=== PATIENT | female | born 1995 | race Caucasian/White ===

== ENCOUNTER 2018-01-23 08:49 | Outpatient (CLI) | payer OTHER | END 2018-01-23 08:50 | disposition short-term general hospital (02) | LOC: EMS 08:49 | PROVIDERS: ATTEND Surgery | DX: R10.9 Unspecified abdominal pain (principal); R55 Syncope and collapse | CPT/HCPCS: A0425; A0427 ==

== ENCOUNTER 2018-04-13 11:00 | Outpatient (CLI) | payer OTHER | END 2018-04-13 11:01 | disposition critical access hospital (66) | LOC: EMS 11:00 | PROVIDERS: ATTEND Surgery | DX: R11.2 Nausea with vomiting, unspecified (principal); R10.11 Right upper quadrant pain | CPT/HCPCS: A0425; A0427 ==

== ENCOUNTER 2018-04-13 11:16 | Emergency (ER) | payer OTHER ==
[2018-04-13] MEDS ORDERED: ONDANSETRON 4 MG/2 ML VIAL IVP STA (12:14)
[2018-04-13] MEDS ORDERED: SODIUM CHLORIDE 0.9% 1,000 ML IV ONE (12:23)
[2018-04-13] MEDS ORDERED: PANTOPRAZOLE 40 MG VIAL IVP STA (12:35)
[2018-04-13] MEDS ORDERED: KETOROLAC 15 MG/ML VIAL IVP STA (12:35)
[2018-04-13 12:37] LABS: BASOPHILS % (AUTO) 0.5 %; EOSINOPHILS # (AUTO) 0.2 10^3/uL (0.0-0.7); EOSINOPHILS % (AUTO) 1.7 %; HGB - HEMOGLOBIN 12.8 g/dL (12.0-16.0); LYMPHOCYTES # (AUTO) 1.2 10^3/uL (1.5-3.5); LYMPHOCYTES % (AUTO) 13.6 %; MEAN CORPUSCULAR HEMOGLOBIN 31.3 pg (27.0-31.0); MEAN CORPUSCULAR HGB CONC 33.9 g/dL (32.0-36.0); MEAN CORPUSCULAR VOLUME 92.2 fL (81.0-99.0); MEAN PLATELET VOLUME 8.2 fL (7.9-10.8); MONOCYTES # (AUTO) 0.5 10^3/uL (0.0-1.0); MONOCYTES % (AUTO) 5.8 %; NEUTROPHILS # (AUTO) 6.9 10^3/uL (1.5-6.6); NEUTROPHILS % (AUTO) 78.4 %; PLT - PLATELET COUNT 226 10^3/uL (130-450); RED BLOOD COUNT 4.08 10^6/uL (4.20-5.40); RED CELL DISTRIBUTION WIDTH 13.5 % (12.0-15.0); WHITE BLOOD COUNT 8.8 x10^3/uL (4.8-10.8)
--- NOTE | 2018-04-13 12:38 | ED Physician Documentation ---
PD HPI ABD PAIN - Stated complaint Stated Complaint: N/V abd px - Chief complaint Chief Complaint: Abd Pain - History obtained from History obtained from: Patient, Family - History of Present Illness Timing - onset: Today Timing - duration: Days (1) Timing - details: Abrupt onset Pain level max: 8 Pain level now: 8 Quality: Aching, Pain, Other (burning) Location: Epigastric Radiation: Other (non-radiating) Improved by: Vomiting Worsened by: Eating Associated symptoms: Nausea, Vomiting. No: Fever, Hematemesis, Diarrhea, Constipation, Melena, Hematochezia, Dysuria, Hematuria Similar symptoms before: Has not had sx before Recently seen: Not recently seen - Additional information Additional information: Patient is a 22-year-old female who presents with epigastric pain and vomiting after drinking alcohol while camping with friends last night. States she normally does not drink beer. She also uses marijuana every 3 days or so. Denies any possibility of . Is not currently on any medications. Has already had a cholecystectomy. Review of Systems Constitutional: denies: Fever, Chills Ears: denies: Ear pain Nose: denies: Rhinorrhea / runny nose, Congestion Throat: denies: Sore throat Respiratory: denies: Cough GI: denies: Diarrhea, Hematemesis, Bloody / black stool : denies: Dysuria Skin: denies: Rash Musculoskeletal: denies: Neck pain, Back pain Neurologic: denies: Headache PD PAST MEDICAL HISTORY - Past Medical History Past Medical History: No - Past Surgical History Past Surgical History: No - Present Medications Home Medications: Ambulatory Orders Medication Instructions Recorded Confirmed Famotidine [Pepcid] 20 mg PO BID #60 tablet 04/13/18 Ondansetron Odt [Zofran] 4 mg TL Q6H PRN #10 tablet 04/13/18 Sucralfate [Carafate] 1 gm PO ACHS #60 tablet 04/13/18 - Allergies Allergies/Adverse Reactions: Allergies Allergy/AdvReac Type Severity Reaction Status Date / Time No Known Drug Allergies Allergy Verified 04/13/18 11:27 - Social History Does the pt smoke?: Yes Smoking Status: Current every day smoker Does the pt drink ETOH?: Yes Does the pt have substance abuse?: No - Immunizations Immunizations are current?: Yes - POLST Patient has POLST: No PD ED PE NORMAL - Vitals Vital signs reviewed: Yes - General General: Alert and oriented X 3, No acute distress - HEENT HEENT: Moist mucous membranes - Neck Neck: Supple, no meningeal sign - Cardiac Cardiac: RRR, Strong equal pulses - Respiratory Respiratory: No respiratory distress, Clear bilaterally - Abdomen Abdomen: Soft, Other (Tender palpation epigastric without peritoneal signs) - Back Back: No CVA TTP, No spinal TTP - Derm Derm: Warm and dry, No rash - Extremities Extremities: No edema - Neuro Neuro: Alert and oriented X 3 - Psych Psych: Normal mood, Normal affect Results - Vitals Vitals: Vital Signs - 24 hr 04/13/18 04/13/18 04/13/18 11:24 13:00 14:15 Temperature 36.6 C 36.5 C Heart Rate 77 78 70 Respiratory 20 16 18 Rate Blood Pressure 121/71 114/72 111/65 O2 Saturation 99 98 99 Oxygen O2 Source Room air - Labs Labs: Laboratory Tests 04/13/18 04/13/18 04/13/18 12:30 12:31 12:31 WBC 8.8 RBC 4.08 L Hgb 12.8 Hct 37.6 MCV 92.2 MCH 31.3 H MCHC 33.9 RDW 13.5 Plt Count 226 MPV 8.2 Neut # (Auto) 6.9 H Lymph # (Auto) 1.2 L [place] # (Auto) 0.5 Eos # (Auto) 0.2 Baso # (Auto) 0.0 Absolute Nucleated RBC 0.00 Nucleated RBC % 0.0 Sodium 137 Potassium 4.1 Chloride 109 Carbon Dioxide 24 Anion Gap 4.0 L BUN 5 L Creatinine 0.5 Estimated GFR (MDRD) 154 Glucose 103 H Calcium 8.2 L Total Bilirubin 0.3 AST 17 ALT 16 Alkaline Phosphatase 62 Total Protein 7.2 Albumin 3.9 Globulin 3.3 Albumin/Globulin Ratio 1.2 Lipase 27 Urine Color YELLOW Urine Clarity CLEAR Urine pH 6.5 Ur Specific [place] 1.020 Urine Protein NEGATIVE Urine Glucose (UA) NEGATIVE Urine Ketones NEGATIVE Urine Occult Blood TRACE-INTA Urine Nitrite NEGATIVE Urine Bilirubin NEGATIVE Urine Urobilinogen 0.2 (NORMAL) Ur Leukocyte Esterase NEGATIVE Ur Microscopic Review NOT INDICATED Urine Culture Comments NOT INDICATED Urine HCG, Qual NEGATIVE PD MEDICAL DECISION MAKING - ED course Complexity details: reviewed results, re-evaluated patient, considered differential, d/w patient, d/w family ED course: Patient is a 22-year-old female who presents to the emergency department with vomiting and epigastric pain after drinking alcohol last night. Appears to be alcoholic gastritis. Feels better after Zofran and Protonix. Tolerating p.o. without difficulty. Was also given a GI cocktail. Will prescribe nausea medication and Carafate along with Pepcid for home. Abdomen is soft, nontender nondistended on serial exam. No acute laboratory abnormalities. Has already had a cholecystectomy. Not . Patient counseled regarding signs and symptoms for which I believe and urgent re-evaluation would be necessary. Patient with good understanding of and agreement to plan and is comfortable going home at this time This document was made in part using voice recognition software. While efforts are made to proofread this document, sound alike and grammatical errors may occur. - Sepsis Event Vital Signs: Vital Signs - 24 hr 04/13/18 04/13/18 04/13/18 11:24 13:00 14:15 Temperature 36.6 C 36.5 C Heart Rate 77 78 70 Respiratory 20 16 18 Rate Blood Pressure 121/71 114/72 111/65 O2 Saturation 99 98 99 Oxygen O2 Source Room air Departure - Departure Disposition: 01 Home, Self Care Clinical Impression: Abdominal pain Qualifiers: Abdominal location: epigastric Qualified Code(s): R10.13 - Epigastric pain Gastritis Qualifiers: Gastritis type: alcoholic Chronicity: acute Gastritis bleeding: without bleeding Qualified Code(s): K29.20 - Alcoholic gastritis without bleeding Condition: Good Instructions: ED Abdominal Pain Unkn Cause, ED Gastritis Follow-Up: ANNETTE ARBOLEDA DO [Primary Care Provider] - Within 1 week Prescriptions: Famotidine [Pepcid] 20 mg PO BID #60 tablet Ondansetron Odt [Zofran] 4 mg TL Q6H PRN #10 tablet PRN Reason: Nausea / Vomiting Sucralfate [Carafate] 1 gm PO ACHS #60 tablet Comments: Take all medications as prescribed. Return if you worsen. This should improve over the next 24-48 hours. Discharge Date/Time: 04/13/18 14:17
[2018-04-13 12:52] LABS: ALBUMIN 3.9 g/dL (3.2-5.5); ALBUMIN/GLOBULIN RATIO 1.2 (1.0-2.2); BILIRUBIN,TOTAL 0.3 mg/dL (0.2-1.0); CALCIUM 8.2 mg/dL (8.5-10.3); CREATININE 0.5 mg/dL (0.4-1.0); TOTAL PROTEIN 7.2 g/dL (6.7-8.2)
[2018-04-13] MEDS ORDERED: WATER FOR INJECTION,STERILE 10 ML ONE (13:09)
[2018-04-13 13:12] LABS: BILIRUBIN,URINE NEGATIVE (NEGATIVE); CLARITY,URINE CLEAR (CLEAR); GLUCOSE, URINE (UA) NEGATIVE (NEGATIVE); KETONES,URINE (UA) NEGATIVE (NEGATIVE); LEUKOCYTE ESTERASE, URINE NEGATIVE (NEGATIVE); NITRITE,URINE NEGATIVE (NEGATIVE); OCCULT BLOOD,URINE TRACE-INTA (NEGATIVE); PH,URINE 6.5 PH (5.0-7.5); PROTEIN,URINE NEGATIVE (NEGATIVE); UROBILINOGEN,URINE 0.2 (NORMAL) E.U./dL (NORMAL)
[2018-04-13 13:14] LABS: HCG UR QUAL NEGATIVE
[2018-04-13] MEDS ORDERED: LIDOCAINE VISCOUS 2% 15 ML UDC MM STA (13:37)
[2018-04-13] MEDS ORDERED: PHENobarb/HYOSCY/ATROPINE/SCOP 5 ML UDC PO STA (13:37)
[2018-04-13] MEDS ORDERED: MAG HYDROX/AL HYDROX/SIMETH 30 ML UDC PO STA (13:37)
[2018-04-13] MEDS ORDERED: SUCRALFATE 1 GM/10 ML UDC PO STA (13:37)
[2018-04-13] MEDS ORDERED: FAMOTIDINE 20 MG TABLET PO STA (13:37)
[2018-04-13 14:16] VITALS: BP 111/65
== END 2018-04-13 14:17 | disposition home or self-care (01) ==
LOC: EDUNIT# → SUPCPDRO 11:16 → ED 11:16
DX: R10.13 Epigastric pain (principal); K29.20 Alcoholic gastritis without bleeding; F17.200 Nicotine dependence, unspecified, uncomplicated
CPT/HCPCS: 36415; 80053; 81003; 81025; 83690; 85025; 96361; 96374; 96375; 99283; A9270; 81001; 87086

== ENCOUNTER 2018-05-02 16:47 | Outpatient (CLI) | payer OTHER | END 2018-05-02 16:48 | disposition critical access hospital (66) | LOC: EMS 16:47 | PROVIDERS: ATTEND Surgery | DX: R10.9 Unspecified abdominal pain (principal); R55 Syncope and collapse | CPT/HCPCS: A0425; A0427 ==

== ENCOUNTER 2018-05-02 17:17 | Emergency (ER) | payer OTHER ==
[2018-05-02] MEDS ORDERED: MAG HYDROX/AL HYDROX/SIMETH 30 ML UDC PO STA (17:38)
[2018-05-02] MEDS ORDERED: LIDOCAINE VISCOUS 2% 15 ML UDC MM STA (17:38)
--- NOTE | 2018-05-02 17:41 | ED Physician Documentation ---
PD HPI ABD PAIN - Stated complaint Stated Complaint: ABD PX - Chief complaint Chief Complaint: Abd Pain - History obtained from History obtained from: Patient, EMS - History of Present Illness Timing - onset: How many days ago (She been having upper back pain for a few days but she thought that might just be from gardening although the timing was not quite right. Gets worse if she sits up. She is not short of breath. Over the last day or so though she developed epigastric pain radiating down into the back associated with nausea but no vomiting. She says it is in the same place as where she had alcoholic gastritis a few weeks ago but the pain is different and she has been drinking at home. There is no changes in her bowel movements and no trouble urinating. She has a history of cholecystectomy, and left-sided ectopic surgery as well as is some other tubal surgery.) Review of Systems Ten Systems: 10 systems reviewed and negative Constitutional: reports: Sweats. denies: Fever, Chills GI: reports: Abdominal Pain, Nausea. 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) - Present Medications Home Medications: Ambulatory Orders Medication Instructions Recorded Confirmed Ondansetron Odt [Zofran] 4 mg TL Q6H PRN #10 tablet 04/13/18 05/02/18 Dicyclomine HCl 20 mg PO QID PRN #20 tablet 05/02/18 Hydrocodone/Acetaminophen [Vicodin 1 each PO 05/02/18 5-300 mg Tablet] Ondansetron HCl [Zofran] 4 mg PO Q6H PRN #10 tablet 05/02/18 - Allergies Allergies/Adverse Reactions: Allergies Allergy/AdvReac Type Severity Reaction Status Date / Time No Known Drug Allergies Allergy Verified 05/02/18 17:25 - Social History Does the pt smoke?: Yes Smoking Status: Current every day smoker Does the pt drink ETOH?: Yes Does the pt have substance abuse?: No - Immunizations Immunizations are current?: Yes - POLST Patient has POLST: No PD ED PE NORMAL - Vitals Vital signs reviewed: Yes - General General: Alert and oriented X 3, Other (At times she is tearful and in pain but when asking pointed questions she has a normal affect with no overt pain.) - HEENT HEENT: PERRL, EOMI - Neck Neck: Supple, no meningeal sign, No bony TTP - Cardiac Cardiac: RRR, No murmur - Respiratory Respiratory: No respiratory distress, Clear bilaterally - Abdomen Abdomen: Other (Mild upper abdominal tenderness without surgical signs or rigidity.) - Back Back: No CVA TTP, No spinal TTP - Derm Derm: Normal color, Warm and dry - Extremities Extremities: No edema, No calf tenderness / cord - Neuro Neuro: Alert and oriented X 3, Normal speech Results - Vitals Vitals: Vital Signs - 24 hr 05/02/18 05/02/18 05/02/18 17:21 18:40 20:44 Temperature 36.4 C L Heart Rate 55 L 60 53 L Respiratory 16 18 18 Rate Blood Pressure 115/72 102/58 L 108/87 H O2 Saturation 98 97 96 Oxygen O2 Source Room air - Labs Labs: Laboratory Tests 05/02/18 05/02/18 05/02/18 17:32 17:45 17:45 WBC 8.3 RBC 4.47 Hgb 13.9 Hct 41.3 MCV 92.4 MCH 31.1 H MCHC 33.7 RDW 13.2 Plt Count 257 MPV 8.2 Neut # (Auto) 5.2 Lymph # (Auto) 1.9 [place] # (Auto) 0.5 Eos # (Auto) 0.7 Baso # (Auto) 0.1 Absolute Nucleated RBC 0.01 Nucleated RBC % 0.1 Sodium 138 Potassium 3.8 Chloride 105 Carbon Dioxide 27 Anion Gap 6.0 BUN 11 Creatinine 0.6 Estimated GFR (MDRD) 125 Glucose 102 H Calcium 9.7 Total Bilirubin 0.8 AST 18 ALT 15 Alkaline Phosphatase 63 Total Protein 8.0 Albumin 4.6 Globulin 3.4 Albumin/Globulin Ratio 1.4 Lipase 38 Urine Color YELLOW Urine Clarity CLEAR Urine pH 6.0 Ur Specific [place] 1.025 Urine Protein NEGATIVE Urine Glucose (UA) NEGATIVE Urine Ketones NEGATIVE Urine Occult Blood SMALL H Urine Nitrite NEGATIVE Urine Bilirubin NEGATIVE Urine Urobilinogen 0.2 (NORMAL) Ur Leukocyte Esterase NEGATIVE Urine RBC 6-10 H Urine WBC 0-3 Ur Squamous Epith Cells MOD Squamous H Urine Bacteria Few Urine Mucus Moderate Strands Ur Microscopic Review INDICATED Urine Culture Comments NOT INDICATED Urine HCG, Qual NEGATIVE - Rads (name of study) CT A/P Radiology: EMP read contemporaneously (lonnie wilson) PD MEDICAL DECISION MAKING - ED course ED course: 22-year-old woman with upper abdominal and back pain, examination is not too concerning. We tried a GI cocktail and she had no relief. She had okay relief with Dilaudid but then complete relief with Haldol, raising the question of potential cannabinoid hyperemesis. She remained nontender on repeat examination. - Sepsis Event Vital Signs: Vital Signs - 24 hr 05/02/18 05/02/18 05/02/18 17:21 18:40 20:44 Temperature 36.4 C L Heart Rate 55 L 60 53 L Respiratory 16 18 18 Rate Blood Pressure 115/72 102/58 L 108/87 H O2 Saturation 98 97 96 Oxygen O2 Source Room air Departure - Departure Disposition: 01 Home, Self Care Clinical Impression: Abdominal pain Qualifiers: Abdominal location: epigastric Qualified Code(s): R10.13 - Epigastric pain Condition: Good Record reviewed to determine appropriate education?: Yes Instructions: Abdominal Pain Prescriptions: Dicyclomine HCl 20 mg PO QID PRN #20 tablet PRN Reason: Abdominal Cramps Ondansetron HCl [Zofran] 4 mg PO Q6H PRN #10 tablet PRN Reason: Nausea / Vomiting Comments: Return if worse or if new symptoms develop. If you have persistent similar episodes, talk to your doctor about referral to gastroenterology.
[2018-05-02 17:55] LABS: BASOPHILS # (AUTO) 0.1 10^3/uL (0.0-0.1); EOSINOPHILS # (AUTO) 0.7 10^3/uL (0.0-0.7); EOSINOPHILS % (AUTO) 8.9 %; HGB - HEMOGLOBIN 13.9 g/dL (12.0-16.0); LYMPHOCYTES # (AUTO) 1.9 10^3/uL (1.5-3.5); LYMPHOCYTES % (AUTO) 22.4 %; MEAN CORPUSCULAR HEMOGLOBIN 31.1 pg (27.0-31.0); MEAN CORPUSCULAR HGB CONC 33.7 g/dL (32.0-36.0); MEAN CORPUSCULAR VOLUME 92.4 fL (81.0-99.0); MEAN PLATELET VOLUME 8.2 fL (7.9-10.8); MONOCYTES # (AUTO) 0.5 10^3/uL (0.0-1.0); MONOCYTES % (AUTO) 5.6 %; NEUTROPHILS # (AUTO) 5.2 10^3/uL (1.5-6.6); NEUTROPHILS % (AUTO) 62.1 %; PLT - PLATELET COUNT 257 10^3/uL (130-450); RED BLOOD COUNT 4.47 10^6/uL (4.20-5.40); RED CELL DISTRIBUTION WIDTH 13.2 % (12.0-15.0); WHITE BLOOD COUNT 8.3 x10^3/uL (4.8-10.8)
[2018-05-02 18:10] LABS: ALBUMIN 4.6 g/dL (3.2-5.5); ALBUMIN/GLOBULIN RATIO 1.4 (1.0-2.2); BILIRUBIN,TOTAL 0.8 mg/dL (0.2-1.0); CALCIUM 9.7 mg/dL (8.5-10.3); CREATININE 0.6 mg/dL (0.4-1.0)
[2018-05-02 18:11] LABS: BILIRUBIN,URINE NEGATIVE (NEGATIVE); GLUCOSE, URINE (UA) NEGATIVE (NEGATIVE); KETONES,URINE (UA) NEGATIVE (NEGATIVE); LEUKOCYTE ESTERASE, URINE NEGATIVE (NEGATIVE); NITRITE,URINE NEGATIVE (NEGATIVE); OCCULT BLOOD,URINE SMALL (NEGATIVE); PROTEIN,URINE NEGATIVE (NEGATIVE); UROBILINOGEN,URINE 0.2 (NORMAL) E.U./dL (NORMAL)
[2018-05-02] MEDS ORDERED: HYDROmorphone 2 MG/ML VIAL IVP STA (18:16)
[2018-05-02 18:29] LABS: CLARITY,URINE CLEAR (CLEAR); HCG UR QUAL NEGATIVE
[2018-05-02 18:32] LABS: BACTERIA,URINE Few /HPF (None Seen); MUCUS,URINE Moderate Strands; SQUAMOUS EPITHELIAL CELL,UR MOD Squamous (<= Few)
[2018-05-02] MEDS ORDERED: HALOPERIDOL 5 MG/ML VIAL IVP ONE (19:23)
[2018-05-02] MEDS ORDERED: IOPAMIDOL-300 100 ML VIAL ONE (19:48)
[2018-05-02] MEDS ORDERED: IOPAMIDOL-300 100 ML VIAL IVP ONE (20:24)
[2018-05-02 20:44] VITALS: BP 108/87
--- NOTE | 2018-05-02 20:47 | CT Report ---
Procedure Date: 05/02/2018 Accession Number: [id number] / [id number] Procedure: CT - Abdomen/Pelvis W/ CPT Code: FULL RESULT: EXAM: CT ABDOMEN AND PELVIS EXAM DATE: 05/02/2018 08:21 PM. CLINICAL HISTORY: Epigastric pain since yesterday. Nausea.. COMPARISONS: None. TECHNIQUE: Routine helical CT imaging was performed through the abdomen and pelvis. IV contrast: 100 ML ISOVUE 300. Enteric contrast: No. Reconstructions: Coronal and sagittal. In accordance with CT protocol optimization, one or more of the following dose reduction techniques were utilized for this exam: automated exposure control, adjustment of mA and/or KV based on patient size, or use of iterative reconstructive technique. FINDINGS: Lung Bases: Unremarkable. Liver: Normal. No masses. Gallbladder/Bile Ducts: Cholecystectomy. No ductal dilatation. Spleen: Normal. Pancreas: Normal. Adrenal Glands: Normal. Kidneys: Normal. No masses or hydronephrosis. Peritoneal Cavity/Bowel: No free air or adenopathy. No masses or acute inflammatory process. The appendix is well visualized and normal. Pelvic Organs: Trace free fluid, likely physiologic. The reproductive organs and bladder are unremarkable, noting corpus luteum on the right. Vasculature: No aneurysms or other significant abnormality. Bones: No significant abnormality. Other: None. IMPRESSION: Cholecystectomy noted, otherwise unremarkable abdomen and pelvis CT. RADIA
== END 2018-05-02 20:58 | disposition home or self-care (01) ==
LOC: ED 17:17
DX: R10.13 Epigastric pain (principal); F17.200 Nicotine dependence, unspecified, uncomplicated
CPT/HCPCS: 36415; 74177; 80053; 81001; 81025; 83690; 85025; 96374; 96375; 99283; A9270; J1170; Q9967; 81003; 87086

== ENCOUNTER 2018-06-09 02:09 | Outpatient (CLI) | payer OTHER | END 2018-06-09 02:10 | disposition critical access hospital (66) | LOC: EMS 02:09 | PROVIDERS: ATTEND Surgery | DX: R10.9 Unspecified abdominal pain (principal) | CPT/HCPCS: A0425; A0429 ==

== ENCOUNTER 2018-06-09 02:32 | Emergency (ER) | payer OTHER ==
[2018-06-09 03:15] LABS: BILIRUBIN,URINE NEGATIVE (NEGATIVE); GLUCOSE, URINE (UA) NEGATIVE (NEGATIVE); KETONES,URINE (UA) NEGATIVE (NEGATIVE); LEUKOCYTE ESTERASE, URINE NEGATIVE (NEGATIVE); NITRITE,URINE NEGATIVE (NEGATIVE); OCCULT BLOOD,URINE TRACE-INTA (NEGATIVE); PROTEIN,URINE NEGATIVE (NEGATIVE); UROBILINOGEN,URINE 0.2 (NORMAL) E.U./dL (NORMAL)
[2018-06-09 03:17] LABS: CLARITY,URINE CLEAR (CLEAR); HCG UR QUAL NEGATIVE
[2018-06-09] MEDS ORDERED: ONDANSETRON 4 MG/2 ML VIAL IVP STA (03:58)
[2018-06-09] MEDS ORDERED: ACETAMINOPHEN 1,000 MG/100 ML 100 ML IV STA (03:58)
[2018-06-09] MEDS ORDERED: SODIUM CHLORIDE 0.9% 1,000 ML IV ONE (03:58)
[2018-06-09] MEDS ORDERED: MAG HYDROX/AL HYDROX/SIMETH 30 ML UDC PO STA ×2 (03:58→07:05)
[2018-06-09 04:05] LABS: MUDS CUTOFF CONCENTRATIONS CUTOFF CONC BELOW:
[2018-06-09 04:16] LABS: AMPHETAMINE SCREEN,URINE NEGATIVE (NEGATIVE); BENZODIAZEPINES SCREEN, URINE NEGATIVE (NEGATIVE); COCAINE SCREEN URINE NEGATIVE (NEGATIVE); METHADONE SCREEN, URINE NEGATIVE (NEGATIVE); METHAMPHETAMINES SCREEN, URINE NEGATIVE (NEGATIVE); OPIATE SCREEN, URINE NEGATIVE (NEGATIVE); OXYCODONE SCREEN, URINE NEGATIVE (NEGATIVE); PROPOXYPHENE SCREEN, URINE NEGATIVE (NEGATIVE); TRICYCLIC ANTIDEPRESSANT,URINE NEGATIVE (NEGATIVE)
[2018-06-09 04:26] LABS: BASOPHILS # (AUTO) 0.1 10^3/uL (0.0-0.1); BASOPHILS % (AUTO) 0.6 %; EOSINOPHILS # (AUTO) 0.1 10^3/uL (0.0-0.7); EOSINOPHILS % (AUTO) 0.8 %; HGB - HEMOGLOBIN 12.6 g/dL (12.0-16.0); LYMPHOCYTES # (AUTO) 1.2 10^3/uL (1.5-3.5); LYMPHOCYTES % (AUTO) 10.4 %; MEAN CORPUSCULAR HEMOGLOBIN 30.6 pg (27.0-31.0); MEAN CORPUSCULAR HGB CONC 34.4 g/dL (32.0-36.0); MEAN PLATELET VOLUME 8.6 fL (7.9-10.8); MONOCYTES # (AUTO) 0.8 10^3/uL (0.0-1.0); MONOCYTES % (AUTO) 6.5 %; NEUTROPHILS # (AUTO) 9.6 10^3/uL (1.5-6.6); NEUTROPHILS % (AUTO) 81.7 %; PLT - PLATELET COUNT 231 10^3/uL (130-450); RED BLOOD COUNT 4.12 10^6/uL (4.20-5.40); RED CELL DISTRIBUTION WIDTH 13.7 % (12.0-15.0); WHITE BLOOD COUNT 11.7 x10^3/uL (4.8-10.8)
[2018-06-09 04:36] LABS: ALBUMIN 4.3 g/dL (3.2-5.5); ALBUMIN/GLOBULIN RATIO 1.5 (1.0-2.2); BILIRUBIN,TOTAL 0.5 mg/dL (0.2-1.0); CREATININE 0.6 mg/dL (0.4-1.0); TOTAL PROTEIN 7.2 g/dL (6.7-8.2)
[2018-06-09] MEDS ORDERED: LIDOCAINE VISCOUS 2% 15 ML UDC MM STA (07:05)
--- NOTE | 2018-06-09 07:42 | ED Physician Documentation ---
PD HPI ABD PAIN - Stated complaint Stated Complaint: ABD PAIN/ETOH - Chief complaint Chief Complaint: Abd Pain - History obtained from History obtained from: Patient - History of Present Illness Timing - onset: How many hours ago (the past couple of hours) Timing - details: Abrupt onset, Still present (had had several drinks and some marijuana, got nauseated and then vomiting several times. With upper abd pain.) Quality: Cramping, Aching, Pain Location: Epigastric Radiation: No: Lower back, Left flank, Right flank Improved by: No: Vomiting Worsened by: Palpation Associated symptoms: Nausea, Vomiting. No: Fever, Diarrhea, Constipation Similar symptoms before: Has not had sx before Recently seen: Not recently seen Review of Systems Constitutional: denies: Fever, Chills Nose: denies: Rhinorrhea / runny nose, Congestion Throat: denies: Sore throat Respiratory: denies: Cough GI: reports: Abdominal Pain (just the past couple of hours.), Nausea, Vomiting. 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 - Present Medications Home Medications: Ambulatory Orders Medication Instructions Recorded Confirmed Ondansetron Odt [Zofran] 4 mg TL Q6H PRN #10 tablet 04/13/18 05/02/18 Dicyclomine HCl 20 mg PO QID PRN #20 tablet 05/02/18 Hydrocodone/Acetaminophen [Vicodin 1 each PO 05/02/18 5-300 mg Tablet] Ondansetron HCl [Zofran] 4 mg PO Q6H PRN #10 tablet 05/02/18 Famotidine [Pepcid] 20 mg PO ONCE #30 tablet 06/09/18 Ondansetron Odt [Zofran] 4 mg TL Q6H PRN #15 tablet 06/09/18 - Allergies Allergies/Adverse Reactions: Allergies Allergy/AdvReac Type Severity Reaction Status Date / Time No Known Drug Allergies Allergy Verified 05/02/18 17:25 - Social History Does the pt smoke?: Yes Smoking Status: Current every day smoker Does the pt drink ETOH?: Yes Does the pt have substance abuse?: Yes Substance Use and Type: Marijuana - Immunizations Immunizations are current?: Yes - POLST Patient has POLST: No PD ED PE NORMAL - Vitals Vital signs reviewed: Yes - General General: Alert and oriented X 3, Well developed/nourished, Other (somewhat sleepy, but rousable.) - HEENT HEENT: PERRL (nonicteric), Pharynx benign - Neck Neck: Supple, no meningeal sign, No adenopathy - Cardiac Cardiac: RRR, No murmur - Respiratory Respiratory: Clear bilaterally - Abdomen Abdomen: Soft, Non distended, No organomegaly, Other (tender epigastric area with local guarding. ) - Female Female : Deferred - Rectal Rectal: Deferred - Back Back: No CVA TTP - Derm Derm: Normal color, Warm and dry - Neuro Neuro: No motor deficit, Normal speech. No: Alert and oriented X 3 (seems some sleepy c/w some intoxication. Rousable. ) Results - Vitals Vitals: Vital Signs - 24 hr 06/09/18 06/09/18 06/09/18 02:38 04:23 05:10 Temperature 36.6 C Heart Rate 111 H 82 59 L Respiratory 20 18 16 Rate Blood Pressure 129/85 H 97/52 L 93/53 L O2 Saturation 98 99 96 06/09/18 06:21 Temperature Heart Rate 57 L Respiratory 15 Rate Blood Pressure 91/49 L O2 Saturation 96 Oxygen O2 Source Room air - Labs Labs: Laboratory Tests 06/09/18 06/09/18 06/09/18 03:00 03:00 03:00 WBC RBC Hgb Hct MCV MCH MCHC RDW Plt Count MPV Neut # (Auto) Lymph # (Auto) [place] # (Auto) Eos # (Auto) Baso # (Auto) Absolute Nucleated RBC Nucleated RBC % Sodium Potassium Chloride Carbon Dioxide Anion Gap BUN Creatinine Estimated GFR (MDRD) Glucose Calcium Total Bilirubin AST ALT Alkaline Phosphatase Total Protein Albumin Globulin Albumin/Globulin Ratio Lipase Urine Color YELLOW Urine Clarity CLEAR Urine pH 6.0 Ur Specific [place] 1.010 1.010 Urine Protein NEGATIVE Urine Glucose (UA) NEGATIVE Urine Ketones NEGATIVE Urine Occult Blood TRACE-INTA Urine Nitrite NEGATIVE Urine Bilirubin NEGATIVE Urine Urobilinogen 0.2 (NORMAL) Ur Leukocyte Esterase NEGATIVE Ur Microscopic Review NOT INDICATED Urine Culture Comments NOT INDICATED Urine HCG, Qual NEGATIVE Urine Opiates Screen NEGATIVE Ur Oxycodone Screen NEGATIVE Urine Methadone Screen NEGATIVE Ur Propoxyphene Screen NEGATIVE Ur Barbiturates Screen NEGATIVE Ur Tricyclics Screen NEGATIVE Ur Phencyclidine Scrn NEGATIVE Ur Amphetamine Screen NEGATIVE U Methamphetamines Scrn NEGATIVE U Benzodiazepines Scrn NEGATIVE Urine Cocaine Screen NEGATIVE U Cannabinoids Screen POSITIVE H Ethyl Alcohol 06/09/18 06/09/18 04:15 04:15 WBC 11.7 H RBC 4.12 L Hgb 12.6 Hct 36.7 L MCV 89.0 MCH 30.6 MCHC 34.4 RDW 13.7 Plt Count 231 MPV 8.6 Neut # (Auto) 9.6 H Lymph # (Auto) 1.2 L [place] # (Auto) 0.8 Eos # (Auto) 0.1 Baso # (Auto) 0.1 Absolute Nucleated RBC 0.00 Nucleated RBC % 0.0 Sodium 140 Potassium 3.8 Chloride 107 Carbon Dioxide 24 Anion Gap 9.0 BUN 9 Creatinine 0.6 Estimated GFR (MDRD) 125 Glucose 104 H Calcium 9.0 Total Bilirubin 0.5 AST 15 ALT 13 Alkaline Phosphatase 54 Total Protein 7.2 Albumin 4.3 Globulin 2.9 Albumin/Globulin Ratio 1.5 Lipase 29 Urine Color Urine Clarity Urine pH Ur Specific [place] Urine Protein Urine Glucose (UA) Urine Ketones Urine Occult Blood Urine Nitrite Urine Bilirubin Urine Urobilinogen Ur Leukocyte Esterase Ur Microscopic Review Urine Culture Comments Urine HCG, Qual Urine Opiates Screen Ur Oxycodone Screen Urine Methadone Screen Ur Propoxyphene Screen Ur Barbiturates Screen Ur Tricyclics Screen Ur Phencyclidine Scrn Ur Amphetamine Screen U Methamphetamines Scrn U Benzodiazepines Scrn Urine Cocaine Screen U Cannabinoids Screen Ethyl Alcohol 51.2 PD MEDICAL DECISION MAKING - ED course Complexity details: re-evaluated patient (She still has some upper abdominal pain. It seems somewhat muscular at this point. She is able to drink some sips of water and then soda and some records without any pain or nausea. She does have someone she can call for a ride home. I think she had some gastritis and stomach irritation probably from the alcohol and then subsequently up upset stomach and irritated stomach. Her blood tests appear good. She has had a previous gallbladder resection. She is appearing better at this point and I feel she is stable for discharge.), considered differential (improved with fluids and meds IV. allowed to sleep awhile in ED and awakens feeling better. Mild epigastric tender. Will try PO challenge. ), d/w patient - Sepsis Event Vital Signs: Vital Signs - 24 hr 06/09/18 06/09/18 06/09/18 02:38 04:23 05:10 Temperature 36.6 C Heart Rate 111 H 82 59 L Respiratory 20 18 16 Rate Blood Pressure 129/85 H 97/52 L 93/53 L O2 Saturation 98 99 96 06/09/18 06:21 Temperature Heart Rate 57 L Respiratory 15 Rate Blood Pressure 91/49 L O2 Saturation 96 Oxygen O2 Source Room air Departure - Departure Disposition: Home, Self Care Clinical Impression: Epigastric abdominal pain Nausea and vomiting Qualifiers: Vomiting type: unspecified Vomiting Intractability: non-intractable Qualified Code(s): R11.2 - Nausea with vomiting, unspecified Gastritis Qualifiers: Gastritis type: unspecified gastritis Chronicity: acute Gastritis bleeding: without bleeding Qualified Code(s): K29.00 - Acute gastritis without bleeding Condition: Stable Record reviewed to determine appropriate education?: Yes Instructions: ED PUD Vs Gastritis Follow-Up: ANNETTE ARBOLEDA DO [Primary Care Provider] - Prescriptions: Famotidine [Pepcid] 20 mg PO ONCE #30 tablet Ondansetron Odt [Zofran] 4 mg TL Q6H PRN #15 tablet PRN Reason: Nausea / Vomiting Comments: Stewart food and lots of fluids today. Tylenol if needed for pains. Ondansetron for nausea. Her stomach is likely pretty irritated from the throwing up and I would suggest some famotidine acid reducing medicine daily for the next week or 2. Recheck if not improved over the course of today and tomorrow. Return if worsening symptoms.
[2018-06-09] MEDS ORDERED: KETOROLAC 60 MG/2 ML VIAL IVP STA (07:57)
[2018-06-09 09:12] VITALS: BP 101/51
== END 2018-06-09 09:26 | disposition home or self-care (01) ==
LOC: EDUNIT# → SUPCPDRO 02:32 → ED 02:32
DX: K29.00 Acute gastritis without bleeding (principal); F17.200 Nicotine dependence, unspecified, uncomplicated
CPT/HCPCS: 36415; 80053; 80306; 80320; 81003; 81025; 83690; 85025; 96361; 96365; 96375; 99284; A9270; J0131; 81001; 87086